=== PATIENT | female | born 1950 | race Hispanic/Latino ===

== ENCOUNTER 2018-03-10 06:33 | Outpatient (CLI) | payer MEDICARE, OTHER | END 2018-03-10 06:34 | disposition home or self-care (01) | LOC: CARDIO 06:33 ==

== ENCOUNTER 2018-03-12 07:59 | Day surgery (SDC) | payer MEDICARE, OTHER ==
[2018-03-12 08:12] VITALS: BMI 32.1
[2018-03-12 08:49] LABS: BASO # 0.04 K/mm3 (0.0-2.0); BASO % 0.7 % (0.0-3.0); EOS # 0.3 (0.0-0.7); EOS % 4.6 % (1.5-5.0); GRAN # 3.46 (1.4-6.5); GRAN % 61.5 % (50.0-68.0); LYMPH # 1.5 (1.2-3.4); LYMPH % 26.8 % (22.0-35.0); MEAN CELL VOLUME 94.2 fl (80.0-105.0); MEAN CORPUSCULAR HEMOGLOBIN 31.4 pg (25.0-35.0); MEAN CORPUSCULAR HGB CONC 33.3 g/dl (31.0-37.0); MEAN PLATELET VOLUME 10.2 fl (7.0-11.0); MONO # 0.4 (0.1-0.6); MONO % 6.4 % (1.0-6.0); RBC 4.46 10^6/uL (3.5-6.1); RED CELL DISTRIBUTION WIDTH 13.7 % (11.5-14.5); WHITE BLOOD COUNT 5.6 10^3/uL (4.5-11.0)
[2018-03-12 08:54] LABS: BLOOD UREA NITROGEN 19 mg/dL (7-21); CALCIUM 9.7 mg/dL (8.4-10.5); GFR NON-AFRICAN AMERICAN > 60
[2018-03-12 09:07] LABS: INR 0.91; PARTIAL THROMBOPLASTIN TIME 33.4 Seconds (25.1-36.5); PROTHROMBIN TIME 10.5 SECONDS (9.4-12.5)
[2018-03-12] MEDS ORDERED: Midazolam 2 MG/2 ML VIAL ONE ×2 (09:58→10:11)
[2018-03-12] MEDS ORDERED: Sodium Chloride 0.9% 1,000 ML IV SCH (10:45)
[2018-03-12 11:05] VITALS: TEMP 97.9
[2018-03-12] MEDS ORDERED: Iodixanol 320 MG/ML 200 ML BOTTLE IV ONE (11:14)
[2018-03-12] MEDS ORDERED: Lidocaine 2% Inj (20ml) ONE (11:14)
--- NOTE | 2018-03-12 11:48 | CARDCATH ---
PROCEDURE DATE: 03/12/2018 HISTORY The patient is a 67-year-old woman who presents with recurrence of intermittent chest pain. A stress test was abnormal. Because of this, cardiac catheterization was recommended. She suffers from hypercholesterolemia. PROCEDURE: Left heart catheterization with coronary arteriography and left ventriculogram. The right femoral artery was cannulated with 6-[place] sheath. There were no complications. I performed moderate sedation which included the presence of an independent trained observer that assisted in monitoring the patient's level of consciousness and physiologic status. After administration of Versed and fentanyl, my intra service time was 15 minutes. The findings on catheterization revealed a left main artery that was within normal limits. The circumflex artery which was a codominant vessel revealed intimal irregularities without critical lesions. There was a large ramus intermedius vessel that was within normal limits. The LAD and diagonal vessels were free of significant disease. The RCA was selectively cannulized and found to be a codominant vessel. The RCA revealed mild intimal irregularities without critical lesions. Left ventriculogram was performed in the RUVALCABA projection. The RUVALCABA projection wall motion is within normal limits. Estimated ejection fraction is 60%-65%. Angio-Seal was used to close the right femoral artery site. The patient tolerated the procedure well. In summary, the procedure revealed unremarkable coronary arteries. Normal LV function. Given these findings, the patient's treatment will be to continue a cardiac risk reduction program. Her chest symptoms are not of cardiac origin. Jeison Vaughn MD
[2018-03-12 14:35] VITALS: RESP 18
[2018-03-12 15:36] VITALS: BP 109/77; PULSE 71; O2SAT 96
--- NOTE | 2018-03-12 18:54 | CARD ---
APPROVED REPORT Date of service: 03/12/2018 EKG Measurement Heart [id number] <Conclusion> Normal sinus rhythm Normal ECG
== END 2018-03-12 16:30 | disposition home or self-care (01) ==
LOC: CATH 07:59
PROVIDERS: ATTEND Internal Medicine Cardiovascular Disease
DX: R07.89 Other chest pain (principal); R94.39 Abnormal result of other cardiovascular function study; E78.00 Pure hypercholesterolemia, unspecified; E83.119 Hemochromatosis, unspecified
CPT/HCPCS: 36415; 80048; 85025; 85610; 85730; 86850; 86900; 93005; 93458; 99152; C1760; C1769; C2629; J0583; J1644; J2250; J3010; J7030; J7040; Q9966